=== PATIENT | male | born 1955 | race Caucasian/White ===

== ENCOUNTER → 2019-02-23 | Day surgery (SDC) | payer OTHER ==
[~2019-02-23] MED LIST: 0.9 % SODIUM CHLORIDE 20 ML VIAL. IJ ONE; ALBU2.5V8 INH; ALOG25TA2 PO; BACITRACIN 50,000 UNIT VIAL. IRR ONE; BACITRACIN 50,000 UNIT in IV NORMAL SALINE 500ML BAG 500 ML IRR ONE; BUPIVAC MPF-EPI 0.5%-1:200000 30 ML VIAL. ONE; CHLORHEXIDINE 0.12% 15 ML MOUTHWASH. SWSP ONE; CHOL10003 PO; CLINDAMYCIN 900MG PREMIX 50 ML IV PRN; CYAN250012 PO; CYCL5TAB PO; DEXAMETHASONE SOD PHOS 4 MG/ML VIAL ONE; DIPH50CA PO; DOCU100C28 PO; FURO20TA3 PO; GABA-585 PO; GABA600T7 PO; GELATIN SPONGE SIZE 4 SPONGE. ONE; HYDR59LO TP; HYDROmorphone 2 MG/ML VIAL IV PRN; IBUP-1007 PO; IV RINGERS,LACTATED 1000ML 1,000 ML IV SCH; LIDOCAINE 1% PF 2 ML VIAL. ID PRN; LIDOCAINE 2% PF 5 ML VIAL. ONE; METO25TA4 PO; MORPHINE SULFATE 2 MG/ML VIAL. IV PRN; MORPHINE SULFATE 2 MG/ML VIAL. ONE; OLAN20TA15 PO; ONDANSETRON PF 4 MG/2 ML VIAL. IV PRN; ONDANSETRON PF 4 MG/2 ML VIAL. ONE; OXYMETAZOLINE 0.05% NASAL SPRAY 30ML BOTTLE. NS ONE; PROCHLORPERAZINE 10 MG/2 ML VIAL. IV PRN; PROPOFOL 20 ML IV ONE; ROCURONIUM 50 MG/5 ML VIAL. ONE; SEVOFLURANE 61 TO 120 MINUTES. IH ONE; SURGICEL HEMOSTAT 4X8 EACH. ONE; TERA2CAP3 PO; VARE1TAB21 PO; fentaNYL PF VIAL 100 MCG/2 ML VIAL IV PRN; fentaNYL PF VIAL 100 MCG/2 ML VIAL ONE; hydrALAZINE 20 MG/ML VIAL. IVP ONE; hydrALAZINE 20 MG/ML VIAL. ONE
--- NOTE | 2019-02-23 12:09 | PDOC4 ---
OPERATIVE NOTE Date: Date: February 23, 2019 Pre-Op Diagnosis: COPD HTN DMII Carious non restorable dentition bilateral mandibular klaus Post-Op Diagnosis: COPD HTN DMII Carious non restorable dentition bilateral mandibular klaus Procedure Performed: surgical extraction of all Carious non restorable dentition 4 quadrants of alveoloplasty, surgical removal of bilateral mandibular klaus Surgeon: kuldip Anesthesia Type: hapgood Blood Loss: 50 Specimans Obtained: 1 left palatal pharyngeal arch lesion, appears consistent with verrucous lesion (Teeth disposed of in OR) Findings: Carious non restorable dentition bilateral mandibular klaus Complications: none Operative Note: see dictation LEAH HARDING DMD February 23, 2019 12:09
[2019-02-23] MEDS: fentaNYL PF VIAL 100 MCG/2 ML VIAL IV PRN ×2 (12:45→12:56)
--- NOTE | 2019-02-23 13:26 | OP ---
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 ATTENDING PHYSICIAN: Leah Harding DMD. PREOPERATIVE DIAGNOSES: Chronic obstructive pulmonary disease, hypertension, diabetes mellitus type 2, obesity, obstructive sleep apnea. Caries, nonrestorable teeth, numbers 3, 5, 6, 7, 9, 10, 11, 18, 20, 21, 22, 25, 26, 27, 28, 29, 30 and 31. He also has bilateral mandibular klaus. He has a left pharyngeal arch verrucous lesion approximately 3 x 3 mm. POSTOPERATIVE DIAGNOSES: Chronic obstructive pulmonary disease, hypertension, diabetes mellitus type 2, obesity, obstructive sleep apnea. Caries, nonrestorable teeth, numbers 3, 5, 6, 7, 9, 10, 11, 18, 20, 21, 22, 25, 26, 27, 28, 29, 30 and 31. He also has bilateral mandibular klaus. He has a left pharyngeal arch verrucous lesion approximately 3 x 3 mm. PROCEDURES PERFORMED: Surgical removal of all aforementioned teeth, four quadrants of alveoloplasty and removal of bilateral mandibular klaus. Excisional biopsy of left pharyngeal arch lesion. BRIEF HISTORY: The patient was referred to our clinic by the [facility] for extraction of aforementioned teeth and preprosthetic surgery. Considering his multiple comorbidities and the location of the biopsy, we discussed escalating the level of care to the operating room. The patient was in agreement with our plan. HPI was performed and a permit was obtained. The patient was then scheduled for surgery at [facility]. COMPLICATIONS: None noted at the time of surgery. DRAINS PLACED: None. SPECIMEN SENT: Left pharyngeal arch verrucous lesion sent for permanent pathology. The teeth were disposed off at OR. ESTIMATED BLOOD LOSS: Approximately 50 mL. No drains placed. OPERATIVE DESCRIPTION: After the history and physical was updated in the preoperative holding area, the patient was transported by the Operating Service, placed in the supine position. General anesthesia was induced. The patient was intubated with nasal MANJU intubation, which was secured in the traditional behavioral medical director head wrap. Timeout was initiated and performed. Surgery began with the placement of a moistened throat pack at the oropharynx. The anesthesia was then administered in the form of 0.5% Marcaine 1:200,000 epinephrine. Initially approximately 20 mL were administered, and an additional 10 mL were administered at the culmination of the procedure. Surgery began on the right side with placement of a bite block and a [facility]. The full thickness mucoperiosteal flap was reflected buccally in the maxillary and mandibular arches. Care was taken to expose the klaus. All teeth were extracted with luxators, elevators and forceps without complication. Alveoloplasty was performed with rongeurs, bone files and curettage. There were numerous periapical granulomatous infected sites. Significant time was invested to take curette and excise these sites. Sites were lavaged and suctioned and smoothed with a bone file, curettage, additional copious normal sterile saline. Attention was directed to the torus on the right mandible. Care was taken to protect and retract the tissue. The torus was removed with a large pineapple daljit with rotary instrumentation and copious normal sterile saline. The site was then lavaged with copious normal sterile saline. The sites were packed with Surgicel and oversewn with 3-0 chromic gut sutures in a running locked fashion. Both right maxillary and mandibular arches were performed in this way. The bite block was moved to the left side, and the procedure was continued as additional same as the right side with the extraction of all teeth. Alveoloplasty with rongeurs and bone file. Flaps were reflected buccally and lingually over the mandibular left torus. A full thickness mucoperiosteal flaps were reflected. The remaining dentition was removed and alveoloplasty was performed, the left mandibular torus was then removed with rotary instrumentation and copious normal sterile saline irrigation. The sites were then lavaged and suctioned with copious normal sterile saline. The sites were then packed with Surgicel and oversewn with 3-0 chromic gut sutures in a running locked fashion. The sites were found to be hemostatic. The oral cavity was lavaged and suctioned. An OG was then passed. The throat pack was removed and the stomach was decompressed. The patient was returned to the care of Anesthesia where he was awakened and extubated without complication and transported to the PACU in stable condition. LEAH HARDING DMD DR: DAY[place]/wicho JOB#: [id number] / [id number]
[2019-02-23 14:30] VITALS: BP 137/94
--- NOTE | 2019-02-25 15:05 | PATHOLOGY ---
[facility] Accession Number: [id number] . 01 Material submitted: . pharynx - LEFT PHARYNGEAL ARCH. Modifiers: left . 01 Clinical history: . Carious and non-restorable teeth . 02 Diagnosis: Squamous mucosa and submucosa, left pharyngeal arch: - Squamous papilloma. ([facility] 02/25/2019) [facility]/02/25/2019 . 02 Comment: There is no dysplasia or evidence of malignancy. ([facility] 02/25/2019) . 02 Electronically signed: . Vitaliy Romero MD, Pathologist NPI- [id number] . 01 Gross description: . The specimen is received in formalin, labeled "Heriberto Sanders, left pharyngeal arch". Received is a segment of pale garcia soft tissue measuring 0.6 cm in maximum dimensions. The specimen is submitted entirely in cassette A1. ([facility]; 02/24/2019) QAC/QAC . 02 Pathologist provided ICD-10: D10.9 . 02 CPT . 434251 Specimen Comment: A courtesy copy of this report has been sent to Specimen Comment: [phone]. Specimen Comment: Report sent to Performed at: 01 [facility] [address], [place] [id number] MD Demetri Munoz MD Phone: [phone] Performed at: 02 [facility] [address], [place] [id number] MD Vitaliy Romero MD Phone: [phone]
== END | disposition home or self-care (01) ==
LOC: SURG 09:17
PROVIDERS: ATTEND Dentist Oral and Maxillofacial Surgery
DX: K02.9 Dental caries, unspecified (principal); D10.9 Benign neoplasm of pharynx, unspecified; J44.9 Chronic obstructive pulmonary disease, unspecified; I10 Essential (primary) hypertension; E11.9 Type 2 diabetes mellitus without complications; G47.33 Obstructive sleep apnea (adult) (pediatric); F32.0 Major depressive disorder, single episode, mild; Z79.899 Other long term (current) drug therapy; Z87.891 Personal history of nicotine dependence; Z88.0 Allergy status to penicillin; Z79.84 Long term (current) use of oral hypoglycemic drugs
CPT/HCPCS: 41874; 42808; 82962; 88305; A7015; J0360; J1100; J2001; J2270; J2405; J2704; J3010; J3490; J7040; J7120